=== PATIENT | male | born 1960 | race Caucasian/White ===

== ENCOUNTER 2017-11-08 06:55 | Day surgery (SDC) | payer BC ==
[2017-11-08] MEDS ORDERED: BUPIVACAINE/EPI 0.5% 10 ML SOL INFIL ONE (07:09)
[2017-11-08] MEDS ORDERED: FENTANYL 100MCG/2ML SOL ONE (07:34)
[2017-11-08] MEDS ORDERED: PROPOFOL 500 MG/50 ML EMU IV ONE (07:46)
[2017-11-08] MEDS ORDERED: LIDOCAINE HCL 1% MPF SOL ONE (07:46)
[2017-11-08] MEDS ORDERED: CEFAZOLIN SODIUM 1 GM PDS ONE ×2 (08:18)
[2017-11-08] MEDS ORDERED: KETOROLAC TROMETHAMINE 30 MG/ML SOL ONE (09:39)
[2017-11-08] MEDS: MORPHINE SULFATE 10 MG/ML SOL ONE ×2 (10:04→10:32)
[2017-11-08] MEDS ORDERED: APAP/HYDROCODONE 325/5 TAB PO PRN (10:52)
[2017-11-08] MEDS ORDERED: MORPHINE SULFATE 10 MG/ML SOL IV PRN (10:52)
[2017-11-08] MEDS ORDERED: ONDANSETRON HCL 4 MG/2 ML SOL IV PRN (10:52)
[2017-11-08 12:43] VITALS: RESP 16
[2017-11-08 13:41] VITALS: BP 134/87; PULSE 67; TEMP 97.3; O2SAT 92
[2017-11-08] MEDS ORDERED: APAP/HYDROCODONE 325/5 TAB ONE (13:43)
== END 2017-11-08 14:15 | disposition home or self-care (01) ==
LOC: SURG 06:55
PROVIDERS: ATTEND Surgery
DX: K40.90 Unilateral inguinal hernia, without obstruction or gangrene, not specified as recurrent (principal)
CPT/HCPCS: 49505; C1781; J0690 ×2; J1885; J2001; J2270; J2405; J2704; J3010; A6402

== ENCOUNTER 2017-12-12 12:54 | Emergency (ER) | payer BC ==
[2017-12-12 13:14] VITALS: BP 152/103; PULSE 84; RESP 16; TEMP 97.3; O2SAT 97
[2017-12-12 13:33] LABS: BASOPHILS % (AUTO) 1 % (0-3); EOSINOPHILS % (AUTO) 3 % (0-9); HEMATOCRIT 44 % (39-53); MEAN CORPUSCULAR HGB CONC 34.8 gm/dl (32.0-36.0); MEAN CORPUSCULAR VOLUME 91 fL (80-100); MONOCYTES % (AUTO) 7.5 % (0-12); NEUTROPHILS % (AUTO) 56.7 % (37-80)
[2017-12-12 13:45] LABS: CALCIUM 8.5 mg/dl (8.5-10.1)
== END 2017-12-12 14:21 | disposition home or self-care (01) ==
LOC: ED 12:54
DX: T81.4XXA Infection following a procedure, initial encounter (principal); L03.90 Cellulitis, unspecified
CPT/HCPCS: 80048; 85025; 87070; 87077; 87186; 99282